=== PATIENT | male | born 1995 | race Two or more races ===

== ENCOUNTER → 2020-04-15 | Outpatient (CLI) | payer OTHER ==
--- NOTE | 2020-04-15 10:37 | RAD ---
PQRS Compliance Statement: One or more of the following individualized dose reduction techniques were utilized for this examination: 1. Automated exposure control 2. Adjustment of the mA and/or kV according to patient size 3. Use of iterative reconstruction technique CT SOFT TISSUE NECK WO CONTRST 04/15/2020 11:00 AM Indication: Enlarged lymph nodes COMPARISON: None available. TECHNIQUE: Multiple axial CT images of the neck were obtained without intravenous contrast. Coronal and sagittal reformats are provided. FINDINGS: Evaluation is limited by lack of intravenous contrast. Versus portions of the brain parenchyma and posterior fossa appear normal. Orbits are normal in appearance. Mild mucosal thickening of the left maxillary sinus. Oral cavity, floor of mouth and sublingual space are normal in appearance. Parotid and submandibular spaces are intact. Fourchette Sewer space is normal in appearance. Parapharyngeal fat is preserved. Nasopharynx, oropharynx and hypopharynx are normal in appearance within the limitations provided by the lack of intravenous contrast. Larynx and trachea are normal. Thyroid gland is normal in appearance. There is a 3 mm calcified granuloma in the right upper lobe. 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 Otherwise, versus portions of lungs are clear. No pathologically enlarged lymph nodes are identified within the cervical distribution. No supraclavicular lymphadenopathy is visualized. No suspicious osseous abnormality is identified. IMPRESSION: No pathologically enlarged lymph nodes are identified within the limitations due to the lack of intravenous contrast. Mild mucosal thickening of the left maxillary sinus. Electronically signed by: Dyana Winn MD (04/15/2020 10:34 AM) [facility]
== END ==
LOC: CT 10:13
PROVIDERS: ATTEND Nurse Practitioner Family
DX: J98.4 Other disorders of lung (principal); I28.1 Aneurysm of pulmonary artery; R59.9 Enlarged lymph nodes, unspecified; J84.10 Pulmonary fibrosis, unspecified
CPT/HCPCS: 70490